=== PATIENT | male | born 1950 | race Caucasian/White ===

== ENCOUNTER 2020-02-09 14:27 | Outpatient (CLI) | payer MEDICARE ==
--- NOTE | 2020-02-09 15:21 | RAD ---
LUMBAR SPINE FOUR VIEWS: 02/09/20 INDICATION: Back pain and spondylosis. FINDINGS: There are five lumbar type vertebrae. 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 Surgical cli ps are seen within the right upper quadrant. There is grade I anterolisthesis of L4 and L5. There is mild disc degenerative disease at L4-5 and L3-4. There is moderate disc degenerative disease at L5-S1 . With flexion and extension there is anterolisthesis of L4 and L5 with minimal reduction with hypere xtension. No additional abnormal translational motion is evident. IMPRESSION: 1. Moderate lumbar spondylosis. 2. Abnormal translational motion of L4-L5. POS: [facility]
== END 2020-02-09 14:28 | disposition home or self-care (01) ==
LOC: BICRAD 14:27
PROVIDERS: ATTEND Nurse Practitioner Family
DX: M47.816 Spondylosis without myelopathy or radiculopathy, lumbar region (principal)
CPT/HCPCS: 72110

== ENCOUNTER 2020-06-13 17:46 | Emergency (ER) | payer MEDICARE ==
[2020-06-13] MEDS ORDERED: Morphine 4 MG/ML VIAL ONE ×2 (18:39→19:54)
[2020-06-13] MEDS ORDERED: Ondansetron PF 4 MG/2 ML Vial ONE (18:39)
[2020-06-13 19:03] LABS: #Basophils 0.1 thou/uL (0.0-0.2); #Eosinphils 0.2 thou/uL (0.0-0.7); #Lymphocytes 1.7 thou/uL (1.20-3.40); #Monocytes 0.7 thou/uL (0.11-0.59); #Neutrophils 7.1 thou/uL (1.40-6.50); %Basophils 0.9 % (0.0-1.0); %Eosinophils 1.6 % (0.0-10.0); %Lymphocytes 17.8 % (21.0-51.0); %Monocytes 7.1 % (0.0-10.0); %Neutrophils 72.7 % (42.0-75.0); Hemoglobin 16.5 g/dL (14.0-18.0); Mean Corpuscular HGB CONC 34.5 g/dL (32.0-36.0); Mean Corpuscular Hemoglobin 29.7 pg (27.0-31.0); Mean Corpuscular Volume 86.1 fL (78.0-98.0); Mean Platelet Volume 7.7 fL (7.4-10.4); Platelet Count 141 thou/uL (130-400); RBC Distribution Width 14.5 % (11.5-14.5); Red Blood Cell (RBC) Count 5.55 mill/uL (4.70-6.10); White Blood Cell (WBC) Count 9.7 thou/uL (4.8-10.8)
[2020-06-13 19:23] LABS: ALT (SGPT) 15 U/L (8-55); AST (SGOT) 16 U/L (5-34); Albumin 3.9 g/dL (3.4-4.8); Alkaline Phosphatase 60 U/L (40-110); Anion Gap 11 mmol/L (10-20); BUN (Urea Nitrogen) 10 mg/dL (8.4-25.7); Calc. Creatinine Clearance 0 mL/min (70-130); Calcium 9.1 mg/dL (7.8-10.44); Carbon Dioxide 27 mmol/L (23-31); Chloride 106 mmol/L (98-107); Globulin 3.2 g/dL (2.4-3.5); Glucose 86 mg/dL (80-115); Protein, Total 7.1 g/dL (5.8-8.1); Sodium 140 mmol/L (136-145)
== END 2020-06-13 20:23 | disposition home or self-care (01) ==
LOC: ERS 17:46
DX: I82.411 Acute embolism and thrombosis of right femoral vein (principal); Z79.82 Long term (current) use of aspirin; Z79.899 Other long term (current) drug therapy; Z79.84 Long term (current) use of oral hypoglycemic drugs; J44.9 Chronic obstructive pulmonary disease, unspecified; G47.30 Sleep apnea, unspecified; E11.40 Type 2 diabetes mellitus with diabetic neuropathy, unspecified; I10 Essential (primary) hypertension; E78.00 Pure hypercholesterolemia, unspecified
CPT/HCPCS: 36415; 85379; 96374; 96375; 96376; J2270; J2405

== ENCOUNTER 2023-11-13 12:02 | Inpatient (IN) | payer MEDICARE ==
[~2023-11-13 12:02] MED LIST: Iopamidol 370 76% 100 ML VIAL ONE
[2023-11-13] MEDS ORDERED: Midazolam HCl 2 mg/2 ml Vial ONE (12:30)
[2023-11-13] MEDS ORDERED: Tirofiban-0.9% Sodium Chloride 250 ML ONE (12:37)
[2023-11-13] MEDS ORDERED: TICAGRELOR 90 MG TABLET ONE (12:38)
[2023-11-13] MEDS ORDERED: Iopamidol 370 76% 100 ML VIAL ONE (13:15)
[2023-11-13] MEDS ORDERED: Heparin 10,000 UNITS/ 10 ML VIAL ONE (13:56)
[2023-11-13] MEDS ORDERED: Sodium Chloride 0.9% 200 ML IV PRN (14:23)
[2023-11-13] MEDS ORDERED: Sodium Chloride 0.9% 1,000 ML IV SCH (14:30)
[2023-11-13 15:08] VITALS: BMI 37.3
[2023-11-13] MEDS: Morphine 2 MG/ML VIAL SLOW IVP PRN ×2 (15:18→19:10)
[2023-11-13] MEDS: Sodium Chloride 0.9% 1,000 ML IV SCH (15:19)
[2023-11-13] MEDS ORDERED: Calcium Carbonate 500 MG ChewTAB PO PRN (16:58)
[2023-11-13] MEDS ORDERED: Senokot S 8.6-50 MG TAB PO PRN (16:58)
[2023-11-13 19:39] LABS: Troponin I 2.638 ng/mL (< 0.028)
[2023-11-13] MEDS: Atorvastatin Calcium 20 MG TAB PO SCH (21:16)
[2023-11-13] MEDS: Famotidine 20 MG TAB PO SCH (21:16)
[2023-11-13] MEDS: Gabapentin 300 MG CAP PO SCH (21:16)
[2023-11-13] MEDS: Enoxaparin 120 MG/0.8 ML SYRINGE SC SCH (21:17)
[2023-11-13] MEDS: Insulin Glargine 30 UNITS/0.3 ML VIAL SC SCH (21:18)
[2023-11-13] MEDS: Nitroglycerin 50 MG/250 ML BOT 250 ML IVPB SCH (22:34)
[2023-11-13 23:38] LABS: Troponin I 6.684 ng/mL (< 0.028)
[2023-11-13] MEDS: Ondansetron PF 4 MG/2 ML Vial IVP PRN (23:44)
[2023-11-14 06:55] LABS: #Basophils 0.06 10x3/uL (0.0-0.2); %Basophils 0.5 % (0.0-1.0); %Eosinophils 0.7 % (0.0-10.0); %Lymphocytes 8.5 % (21.0-51.0); %Monocytes 10.1 % (0.0-10.0); %Neutrophils 79.1 % (42.0-75.0); Hematocrit 42.9 % (42.0-52.0); Hemoglobin 14.5 g/dL (14.0-18.0); Mean Corpuscular HGB CONC 33.8 g/dL (32.0-36.0); Mean Corpuscular Hemoglobin 29.6 pg (27.0-31.0); Mean Corpuscular Volume 87.6 fL (78.0-98.0); Mean Platelet Volume 9.4 fL (7.4-10.4); Platelet Count 191 10x3/uL (130-400); RBC Distribution Width 14.2 % (11.5-14.5)
[2023-11-14 07:02] LABS: Hemoglobin A1c 6.4 % (4.0-6.0)
[2023-11-14 07:09] LABS: ALT (SGPT) 31 U/L (8-55); AST (SGOT) 93 U/L (5-34); Albumin 3.5 g/dL (3.4-4.8); Alkaline Phosphatase 48 U/L (40-110); Anion Gap 12 mmol/L (10-20); BUN (Urea Nitrogen) 10 mg/dL (8.4-25.7); Bilirubin, Total 1.5 mg/dL (0.2-1.2); Calc. Creatinine Clearance 125 mL/min (70-130); Carbon Dioxide 26 mmol/L (23-31); Cardiac Risk 3.2 (Less than 4.5); Chloride 104 mmol/L (98-107); Cholesterol 82 mg/dl (< 200 Desired); Estimated GFR 92; Globulin 3.3 g/dL (2.4-3.5); Glucose 137 mg/dL (83-110); HDL Cholesterol 26 mg/dL (>60 Neg Risk); LDL Cholesterol, Calculated 26 mg/dL; Potassium 4.2 mmol/L (3.5-5.1); Protein, Total 6.8 g/dL (5.8-8.1); Sodium 138 mmol/L (136-145); Triglycerides 148 mg/dL (Less than 150)
[2023-11-14 07:33] LABS: Troponin I 19.199 ng/mL (< 0.028)
[2023-11-14] MEDS: Clopidogrel Bisulfate 75 MG TAB PO SCH (07:55)
[2023-11-14] MEDS: Lisinopril 5 MG TAB PO SCH (07:57)
[2023-11-14] MEDS: Nitroglycerin 0.4 MG TAB (25 Tab Bottle) SL PRN (07:58)
[2023-11-14 10:43] LABS: Hematocrit 42.8 % (42.0-52.0); Hemoglobin 14.3 g/dL (14.0-18.0); Platelet Count 186 10x3/uL (130-400)
[2023-11-14] MEDS: Colchicine 0.6 MG TAB PO SCH ×2 (10:49→20:13)
[2023-11-14] MEDS: Insulin Regular, Human 100 UNIT/ML 10 ML VIAL SC PRN (11:03)
[2023-11-14] MEDS: Communication Order-Pharmacy FS ONE (13:21)
[2023-11-14] MEDS: Enoxaparin 80 MG (0.8 mL) SYRINGE SC SCH (20:14)
[2023-11-14] MEDS: Enoxaparin 30 MG (0.3 mL) SYRINGE SC SCH (20:14)
[2023-11-14] MEDS: Morphine 2 MG/ML VIAL SLOW IVP PRN (20:15)
[2023-11-14] MEDS ORDERED: Enoxaparin 80 MG (0.8 mL) SYRINGE SC SCH (21:00)
[2023-11-15 05:25] LABS: Hematocrit 40.6 % (42.0-52.0); Hemoglobin 13.6 g/dL (14.0-18.0); Mean Corpuscular HGB CONC 33.5 g/dL (32.0-36.0); Mean Corpuscular Hemoglobin 29.7 pg (27.0-31.0); Mean Corpuscular Volume 88.6 fL (78.0-98.0); Mean Platelet Volume 9.7 fL (7.4-10.4); Platelet Count 178 10x3/uL (130-400); RBC Distribution Width 14.3 % (11.5-14.5); Red Blood Cell (RBC) Count 4.58 mill/uL (4.70-6.10)
[2023-11-15 06:13] LABS: Anion Gap 12 mmol/L (10-20); BUN (Urea Nitrogen) 13 mg/dL (8.4-25.7); Calc. Creatinine Clearance 113 mL/min (70-130); Calcium 8.8 mg/dL (7.8-10.44); Carbon Dioxide 25 mmol/L (23-31); Chloride 103 mmol/L (98-107); Estimated GFR 89; Glucose 117 mg/dL (83-110); Potassium 3.5 mmol/L (3.5-5.1); Sodium 136 mmol/L (136-145)
[2023-11-15] MEDS ORDERED: Atorvastatin Calcium 20 MG TAB PO SCH (09:00)
[2023-11-15] MEDS: Aspirin 81 mg Enteric Coated Tablet PO SCH (09:01)
[2023-11-15] MEDS: Enoxaparin 120 MG/0.8 ML SYRINGE SC SCH (09:09)
[2023-11-16] MEDS: Acetaminophen 325 MG TAB PO PRN (05:14)
[2023-11-16] MEDS: guaiFENesin/DM ER PO SCH ×2 (05:15→20:51)
[2023-11-16] MEDS: Benzonatate 100 MG CAP PO PRN (08:46)
[2023-11-16] MEDS: Gabapentin 300 MG CAP PO SCH (15:00)
[2023-11-16] MEDS: Atorvastatin Calcium 40 MG TAB PO SCH (20:50)
[2023-11-17 06:03] LABS: Hematocrit 37.9 % (42.0-52.0); Hemoglobin 12.9 g/dL (14.0-18.0); Platelet Count 180 10x3/uL (130-400)
[2023-11-17 06:40] LABS: Anion Gap 10 mmol/L (10-20); BUN (Urea Nitrogen) 16 mg/dL (8.4-25.7); Calc. Creatinine Clearance 137 mL/min (70-130); Calcium 8.8 mg/dL (7.8-10.44); Carbon Dioxide 25 mmol/L (23-31); Chloride 103 mmol/L (98-107); Estimated GFR 95; Glucose 127 mg/dL (83-110); Potassium 3.9 mmol/L (3.5-5.1); Sodium 134 mmol/L (136-145)
[2023-11-17 07:18] LABS: Troponin I 10.554 ng/mL (< 0.028)
[2023-11-18 06:46] LABS: Troponin I 9.082 ng/mL (< 0.028)
[2023-11-19 14:52] VITALS: BP 134/73; TEMP 97.5
== END 2023-11-19 16:55 | disposition home or self-care (01) | DRG 281 ==
LOC: ERS 12:02 → CCL 12:24 → CCU 14:17 → 2NO 11-14 21:37
PROVIDERS: ADMIT Internal Medicine Cardiovascular Disease; ATTEND Internal Medicine Cardiovascular Disease
PROC: 4A023N7 Measurement of Cardiac Sampling and Pressure, Left Heart, Percutaneous Approach (ICD-10-PCS; principal; 2023-11-13)
PROC: B2111ZZ Fluoroscopy of Multiple Coronary Arteries using Low Osmolar Contrast (ICD-10-PCS; 2023-11-13)
PROC: B2181ZZ Fluoroscopy of Left Internal Mammary Bypass Graft using Low Osmolar Contrast (ICD-10-PCS; 2023-11-13)
PROC: B2121ZZ Fluoroscopy of Single Coronary Artery Bypass Graft using Low Osmolar Contrast (ICD-10-PCS; 2023-11-13)
PROC: 02JA3ZZ Inspection of Heart, Percutaneous Approach (ICD-10-PCS; 2023-11-13)
DX: I21.19 ST elevation (STEMI) myocardial infarction involving other coronary artery of inferior wall (principal); I24.1 Dressler's syndrome; I82.501 Chronic embolism and thrombosis of unspecified deep veins of right lower extremity; T82.867A Thrombosis due to cardiac prosthetic devices, implants and grafts, initial encounter; I97.190 Other postprocedural cardiac functional disturbances following cardiac surgery; T82.855A Stenosis of coronary artery stent, initial encounter; I25.10 Atherosclerotic heart disease of native coronary artery without angina pectoris; I10 Essential (primary) hypertension; R07.81 Pleurodynia; Y71.2 Prosthetic and other implants, materials and accessory cardiovascular devices associated with adverse incidents; E78.00 Pure hypercholesterolemia, unspecified; G47.33 Obstructive sleep apnea (adult) (pediatric); E11.40 Type 2 diabetes mellitus with diabetic neuropathy, unspecified; K21.9 Gastro-esophageal reflux disease without esophagitis; Y84.0 Cardiac catheterization as the cause of abnormal reaction of the patient, or of later complication, without mention of misadventure at the time of the procedure; E66.9 Obesity, unspecified; Z87.891 Personal history of nicotine dependence; Z68.36 Body mass index [BMI] 36.0-36.9, adult; Z95.1 Presence of aortocoronary bypass graft; Z88.5 Allergy status to narcotic agent; Z90.49 Acquired absence of other specified parts of digestive tract; Z79.02 Long term (current) use of antithrombotics/antiplatelets; Z79.01 Long term (current) use of anticoagulants; Z86.711 Personal history of pulmonary embolism; Z79.899 Other long term (current) drug therapy; Z79.82 Long term (current) use of aspirin
CPT/HCPCS: 36415; 36416; 71045; 80048; 80053; 80061; 82043; 83036; 84484; 85014; 85018; 85025; 85027; 85049; 85347; 92920; 93005; 93010; 93306; 93455; 93798; 94760; 96374; 96375; 99285; C1769; C1887; G0103; J1644; J1650; J1815; J2250; J2272; J2405; J3246; J7030; Q9967